=== PATIENT | female | born 1955 | race African-American/Black ===

== ENCOUNTER 2016-04-14 23:15 | Emergency (ER) | payer MEDICAID, OTHER ==
[~2016-04-14] VITALS: Ht 162.6 cm; Wt 78.5 kg
[2016-04-15 00:42] VITALS: BP 175/88
[2016-04-15 02:36] VITALS: BP 181/77
[2016-04-15 02:38] VITALS: BP 181/77
--- NOTE | 2016-04-15 04:07 | Emergency Room Report ---
History of Present Illness General Chief Complaint: General Complaint Source: Patient Present Illness HPI 60-year-old female presents to ED for evaluation. Patient states she called 911 because she is having tearing sensation in her hands and feet. States that she's had these symptoms for many months now but worse today. Denies any pain. Denies any leg or motor weakness. Notes pain in her neck that she's also had for many months now. She went to an urgent care several months ago and was told she had a "pinched nerve" which is the reason for her tingling. Patient was prescribed given medications but states they did not help. The pain is a 5/ 10, throbbing, worse with movement. No other aggravating or relieving factors. Denies any bowel or bladder incontinence. Denies any leg or motor weakness. Denies any slurred speech or facial droop. Denies any other associated symptoms Allergies: Coded Allergies: No Known Allergies (Unverified , 04/14/16) Patient History Past Medical History: HTN Past Surgical History: none Pertinent Family History: none Social History: Denies: alcohol use, drug use, smoking Now: No Immunizations: UTD Reviewed Nursing Documentation: PMH: Agreed, PSxH: Agreed Nursing Documentation-PMH Past Medical History: No History, Except For Hx Hypertension: Yes History Of Psychiatric Problem: Yes - Anxiety Review of Systems All Other Systems: negative except mentioned in HPI Physical Exam Vital Signs Date Time Temp Pulse Resp B/P Pulse Ox O2 Delivery O2 Flow Rate FiO2 04/14/16 23:16 98.2 85 16 176/101 98 Room Air Sp02 EP Interpretation: reviewed, normal General Appearance: no apparent distress, alert, GCS 15, non-toxic Head: normocephalic Eyes: bilateral eye PERRL, bilateral eye normal inspection ENT: normal ENT inspection Neck: normal inspection Respiratory: chest non-tender, lungs clear, normal breath sounds, speaking full sentences Cardiovascular #1: regular rate, rhythm, no edema Gastrointestinal: normal bowel sounds, non tender, soft, non-distended, no guarding, no rebound Rectal: deferred Genitourinary: no CVA tenderness Musculoskeletal: back normal, gait/station normal, normal range of motion, non- tender Neurologic: alert, oriented x3, responsive, fire official III-XII nml as tested, motor strength/tone normal, sensory intact, cerebellar normal, normal gait, speech normal Psychiatric: anxious Skin: normal inspection Lymphatic: normal inspection Medical Decision Making Diagnostic Impression: Primary Impression: Cervical radiculopathy ER Course 60-year-old female presents ED complaining of tingling sensation in the hands and feet. Neck pain. Differential-CVA/TIA, cervical radiculopathy, diabetic neuropathy Patient placed on stretcher. After initial history and physical I ordered CT head and C-spine, Accu-Chek Patient is requesting x-rays of her knees and her feet because they "hurt a lot ". Denies any recent trauma CT of head no acute process, CT C-spine shows degenerative changes which is consistent with a cervical radiculopathy X-rays of bilateral knees and feet are unremarkable Accu-Chek within normal limits Reassurance given to patient. Symptoms have been chronic for many months now. Patient should followup with PMD Diagnosis-cervical radiculopathy Stable and discharged to home. Continue medications as directed. Followup with PMD. Return to ED symptoms recur or worsen Other X-Ray Diagnostic Results Other X-Ray Diagnostic Results : X-Ray Ordered: R knee, L knee, R foot, L foot EP Interpretation: Yes Findings: no fractures, no dislocation, no soft tissue swelling Number of Views: 3 Other Impression Right knee-No fracture, no dislocation, no soft tissue swelling Left knee-No fracture, no dislocation, no soft tissue swelling Right foot-No fracture, no dislocation, no soft tissue swelling Left foot-No fracture, no dislocation, no soft tissue swelling CT/MRI/US Diagnostic Results CT/MRI/US Diagnostic Results : Imaging Test Ordered: CT Head, CT Cspine Impression CT head-no acute process CT [id number] degenerative changes, no acute fx Last Vital Signs Date Time Temp Pulse Resp B/P Pulse Ox O2 Delivery O2 Flow Rate FiO2 04/15/16 02:38 98.2 65 18 181/77 97 Room Air Status: improved Disposition: HOME, SELF-CARE Condition: Stable Patient Instructions: Cervical Radiculopathy, [id number] MILAD BARRIENTOS M.D. Apr 15, 2016 04:07
--- NOTE | 2016-04-15 10:04 | Diagnostic Imaging Report ---
\H\CT Brain without Intravenous Contrast INDICATION: \N\Headache.\H\ COMPARISON: \N\None\H\ TECHNIQUE: Serial axial images were obtained from the the skull base through the vertex without intravenous contrast. Coronal reformats were obtained. Dose Estimate: Total DLP \N\1344\H\ mGycm CTDIvol \N\70\H\ mGy FINDINGS: There are few periventricular and subcortical white matter hypodensities which are nonspecific but may reflect the sequela of chronic microangiopathy. There is no evidence of acute intracranial hemorrhage or territorial infarct. The cortical sulci, ventricles and extra-axial CSF spaces appear prominent but likely normal for patient's age. There is no space occupying lesion, mass effect or midline shift. Focal hypodensity in the left basal ganglia may represent a chronic lacunar infarct. The visualized paranasal sinuses and mastoid air cells are clear. The osseous structures are unremarkable. \N\\H\IMPRESSION: 1. No acute intracranial hemorrhage, midline shift or mass effect. 2. Suspected focal chronic lacunar infarct in the left basal ganglia. 3. Few scattered periventricular and subcortical white matter hypodensities are nonspecific but may reflect the sequela of chronic microangiopathy.\N\
--- NOTE | 2016-04-15 10:06 | Diagnostic Imaging Report ---
History: Right knee pain status post fall. Technique: Frontal, lateral, and oblique views of the right knee are provided. Comparison: No prior study is available for comparison. Findings: Overall bony mineralization is within normal limits. There is no evidence of acute fracture or dislocation. No significant erosive change is noted. Mild prominence of the tibial spines likely reflect mild degenerative change. The soft tissues appear grossly normal. No significant joint effusion is noted. Impression: No evidence of acute fracture or dislocation.
--- NOTE | 2016-04-15 10:08 | Diagnostic Imaging Report ---
History: Right foot pain status post fall. Technique: Frontal, lateral, and oblique views of the right foot are provided. Comparison: No prior study is available for comparison. Findings: Overall bony mineralization is within normal limits. There is no evidence of acute fracture or dislocation. The Lisfranc joint is preserved. No significant erosive or arthritic change is noted. The soft tissues appear grossly normal. No significant joint effusion is noted. Impression: No evidence of acute fracture or dislocation.
--- NOTE | 2016-04-16 10:53 | Diagnostic Imaging Report ---
HISTORY: Neck pain status post fall.\H\ \N\COMPARISON: None. DOSE ESTIMATE\H\: Total DLP \N\447\H\ mGycm CTDIvol \N\19\H\ mGy\N\ \H\ \N\TECHNIQUE: \H\ \N\Serial axial images were obtained through the cervical spine without the use of intravenous contrast on a multidetector CT. Multiplanar reformatted images were then obtained. FINDINGS: Vertebral body heights are preserved. There is minimal 2 mm subluxation of C3 on C4 and C4 on C5, likely degenerative. Moderate disc space height loss at C4-C5 through C6-C7 levels with endplate sclerosis is noted. The lateral masses of C1 and C2 are well aligned. There is no prevertebral or paraspinal soft tissue swelling or other evidence of acute fracture. Mild biapical pleural scarring is identified. Moderate multilevel neural foraminal stenosis due to uncovertebral and facet arthropathy is noted, particularly at C2-C3, C3-C4, C4-C5 and C5-C6 levels. The discs are difficult to evaluate by CT. IMPRESSION: 1. No CT evidence of acute cervical spine fracture or subluxation. 2. Moderate multilevel cervical spondylosis as described.
--- NOTE | 2016-04-16 10:53 | Diagnostic Imaging Report ---
History: Left knee pain status post fall. Technique: Frontal, lateral, and oblique views of the left knee are provided. Comparison: No prior study is available for comparison. Findings: Overall bony mineralization is within normal limits. There is no evidence of acute fracture or dislocation. No significant erosive or arthritic change is noted. The soft tissues appear grossly normal. No significant joint effusion is noted. Impression: No evidence of acute fracture or dislocation.
--- NOTE | 2016-04-16 10:53 | Diagnostic Imaging Report ---
History: Left foot pain status post fall. Technique: Frontal, lateral, and oblique views of the left foot are provided. Comparison: No prior study is available for comparison. Findings: Overall bony mineralization is within normal limits. There is no evidence of acute fracture or dislocation. The Lisfranc joint is preserved. No significant erosive or arthritic change is noted. The soft tissues appear grossly normal. No significant joint effusion is noted. Impression: No evidence of acute fracture or dislocation.
== END 2016-04-15 02:40 | disposition home or self-care (01) ==
LOC: EDBD 23:15 → EMR 23:25
DX: M47.812 Spondylosis without myelopathy or radiculopathy, cervical region (principal); I10 Essential (primary) hypertension; F41.9 Anxiety disorder, unspecified; M25.562 Pain in left knee; M25.561 Pain in right knee; R51 Headache; M79.672 Pain in left foot; M79.671 Pain in right foot
CPT/HCPCS: 70450; 72125; 82962; 99284

== ENCOUNTER 2017-05-31 22:11 | Emergency (ER) | payer OTHER ==
[~2017-05-31] VITALS: Ht 160 cm; Wt 78.5 kg
[2017-05-31] MEDS ORDERED: Aspirin Baby 81mg ORAL ONE (22:30)
--- NOTE | 2017-05-31 22:31 | Emergency Room Report ---
History of Present Illness General Chief Complaint: Neck Pain Source: Patient, Medical Record Present Illness HPI Is a 61-year-old female who has history of high blood pressure. She presents with 2 chief complaints. First one is neck pain. Localized in the right side. Been ongoing for 3 weeks. She does have a history of degenerative disc disease seen on CT scan here in the past. She was referred to a chiropractor and that did not help. No focal deficit. Worse with certain movement. No other complaint. Second complaint is right-sided chest pain and need to right breast area. Worse with certain movement. Achy in nature. Onset for 24 hours now. No shortness of breath. No nausea no vomiting. No diaphoresis. No exertional component. No radiation. Nothing made it better. Nothing made it worse. No change with food. Allergies: Coded Allergies: CODEINE (Verified Allergy, Unknown, 05/31/17) Patient History Past Medical History: see triage record, old chart reviewed Past Surgical History: other Pertinent Family History: none Social History: Denies: smoking Last Menstrual Period: May 2004 Now: No Immunizations: other Reviewed Nursing Documentation: PMH: Agreed; PSxH: Agreed Nursing Documentation-PMH Hx Cardiac Problems: No Hx Hypertension: Yes Hx Pacemaker: No Hx Asthma: No Hx COPD: No Hx Diabetes: No Hx Cancer: No Hx Gastrointestinal Problems: No Hx Dialysis: No History Of Psychiatric Problem: Yes - Depression Hx Neurological Problems: No Hx Seizures: No Review of Systems Eye: Denies: eye pain, blurred vision ENT: Denies: ear pain, nose congestion, throat swelling Respiratory: Denies: cough, shortness of breath Cardiovascular: Reports: chest pain; Denies: palpitations Gastrointestinal: Denies: abdominal pain, diarrhea, nausea, vomiting Musculoskeletal: Denies: back pain, joint pain Skin: Denies: rash Neurological: Denies: headache, numbness Endocrine: Denies: increased thirst, increased urine Hematologic/Lymphatic: Denies: easy bruising All Other Systems: negative except mentioned in HPI Physical Exam Vital Signs Date Time Temp Pulse Resp B/P (MAP) Pulse Ox O2 Delivery O2 Flow Rate FiO2 05/31/17 22:17 98.3 93 20 134/61 96 Room Air 98.2 vitals normal Sp02 EP Interpretation: reviewed, normal General Appearance: well appearing, no apparent distress, alert Head: normocephalic, atraumatic Eyes: bilateral eye PERRL, bilateral eye EOMI ENT: hearing grossly normal, normal pharynx Neck: full range of motion, supple, no meningismus Respiratory: chest non-tender, lungs clear, normal breath sounds Cardiovascular #1: regular rate, rhythm, no murmur Gastrointestinal: normal bowel sounds, non tender, no mass, no organomegaly, no bruit, non-distended Musculoskeletal: back normal, gait/station normal, normal range of motion Psychiatric: mood/affect normal Skin: warm/dry Medical Decision Making Diagnostic Impression: Primary Impression: Neck pain Additional Impressions: Atypical chest pain Hypokalemia ER Course Patient presents with neck pain. She does have degenerative disc disease on her CT scan from prior. This most likely the cause. Her chest pain is atypical most likely muscle strain. No evidence of ACS, PE, dissection to name a few. I reviewed her medicine that she brought with her. She's taking her hydrochlorothiazide plus blood pressure medication with hydrochlorothiazide in it. This may explain the hypokalemia. We'll discharge with potassium and told her to stop the hydrochlorothiazide. Lab Results Impression labs with hypokalemia EKG Diagnostic Results Rate: normal Rhythm: NSR ST Segments: no acute changes ASA given to the pt in ED: Yes Rhythm Strip Diag. Results Rhythm Strip Time: 23:30 EP Interpretation: yes Rate: 70 Rhythm: NSR, no PVC's, no ectopy Chest X-Ray Diagnostic Results Chest X-Ray Diagnostic Results : Chest X-Ray Ordered: Yes # of Views/Limited/Complete: 1 View Indication: Chest Pain EP Interpretation: Yes Interpretation: no consolidation, no effusion, no pneumothorax, no acute cardiopulmonary disease Impression: No acute disease Electronically Signed by: Med Moctezuma MD Last Vital Signs Date Time Temp Pulse Resp B/P (MAP) Pulse Ox O2 Delivery O2 Flow Rate FiO2 05/31/17 22:17 98.3 93 20 134/61 96 Room Air 98.2 Status: improved Disposition: HOME, SELF-CARE Condition: Stable Scripts Potassium Chloride* (K-DUR*) 20 Meq Tab.er.prt 20 MEQ ORAL DAILY, #14 TAB 0 Refills Prov: MED MOCTEZUMA M.D. 05/31/17 Additional Instructions: Stop your hydrochlorothiazide. Follow-up with your DrMelba in 7 days for recheck on your potassium. Return if symptom worsen. MED MOCTEZUMA M.D. May 31, 2017 22:31
[2017-05-31 22:40] VITALS: BP 134/61
[2017-05-31 22:57] LABS: EOSINOPHILS % (AUTO) 1.2 % (0.0-3.0); HEMATOCRIT 39.9 % (37.0-47.0); HEMOGLOBIN 13.7 G/DL (12.0-16.0); LYMPHOCYTES % (AUTO) 47.4 % (20.0-45.0); MEAN CORPUSCULAR VOLUME 88 FL (80-99); MONOCYTES % (AUTO) 5.4 % (1.0-10.0); PLATELET COUNT 367 K/UL (150-450); RED BLOOD COUNT 4.52 M/UL (4.20-5.40); RED CELL DISTRIBUTION WIDTH 11.4 % (11.6-14.8); WHITE BLOOD COUNT 8.7 K/UL (4.8-10.8)
[2017-05-31 23:10] LABS: ALANINE AMINOTRANSFERASE 16 U/L (12-78); ALBUMIN 3.6 G/DL (3.4-5.0); ALBUMIN/GLOBULIN RATIO 0.9 (1.0-2.7); ALKALINE PHOSPHATASE 110 U/L (46-116); ANION GAP 5 mmol/L (5-15); ASPARTATE AMINO TRANSFERASE 14 U/L (15-37); BILIRUBIN,TOTAL 0.2 MG/DL (0.2-1.0); BLOOD UREA NITROGEN 12 mg/dL (7-18); CARBON DIOXIDE 33 MMOL/L (21-32); CHLORIDE 100 MMOL/L (98-107); SODIUM 138 MMOL/L (136-145)
[2017-05-31 23:18] LABS: POTASSIUM 2.7 MMOL/L (3.5-5.1)
[2017-05-31] MEDS ORDERED: AMLODIPINE BESY10 MG ORAL (23:30)
[2017-05-31] MEDS ORDERED: HYDROCHLOROTH12.5 M2 ORAL (23:30)
[2017-05-31] MEDS ORDERED: BUPROPION HCL150 M3 ORAL (23:30)
[2017-05-31] MEDS ORDERED: BANOPHEN50 MG PO (23:30)
[2017-05-31] MEDS ORDERED: LOSARTAN-HCTZ1 EAC2 ORAL (23:33)
[2017-05-31] MEDS ORDERED: LATUDA80 MG PO (23:33)
[2017-05-31] MEDS ORDERED: VITAMIN D400 INTLU ORAL (23:33)
[2017-05-31] MEDS ORDERED: POTASSIUM CHLO20 ME1 ORAL (23:35)
[2017-05-31 23:45] VITALS: BP 134/61
--- NOTE | 2017-06-01 09:35 | Diagnostic Imaging Report ---
Indication: Chest pain Comparison: 09/29/2009 A single view chest radiograph was obtained. Findings: Cardiomediastinal appearance is within normal limits for age. Pulmonary vascularity is appropriate. The diaphragmatic contour is smooth and costophrenic angles are sharp. No pleural effusions are identified. The bones are unremarkable. Impression: No acute findings
--- NOTE | 2017-06-02 17:28 | Cardiology Report ---
APPROVED REPORT EKG Measurement Heart [id number] Normal sinus rhythm Left axis deviation Minimal voltage criteria for LVH, may be normal variant Nonspecific ST and T wave abnormality Abnormal ECG
== END 2017-05-31 23:45 | disposition home or self-care (01) ==
LOC: EMR 22:33
DX: M54.2 Cervicalgia (principal); R07.89 Other chest pain; E87.6 Hypokalemia; F32.9 Major depressive disorder, single episode, unspecified; I10 Essential (primary) hypertension; Z88.6 Allergy status to analgesic agent
CPT/HCPCS: 36415; 71045; 80053; 84484; 85025; 85379; 93005; 99283; J8499